=== PATIENT | male | born 1955 | race Caucasian/White ===

== ENCOUNTER 2017-11-15 07:42 | Outpatient (CLI) | payer BC ==
--- NOTE | 2017-11-15 10:15 | CT ---
CT PULMONARY LUNG SCAN WITHOUT CONTRAST: INDICATIONS: Wellness examination. Screening for lung cancer with history of 35-year pack per day smoking history . The patient quit 4 to 5 years ago and is 62 years old. COMPARISON: Prior CT pulmonary lung scan from [facility], dated 10/08/2014. FINDINGS: There is a new focus of tree-in-bud nodularity within the posterior aspect of the left lower lobe on image 37 of series 3. There is a noncalcified pulmonary nodule within the left lower lobe, measuring 4.6 mm, stable to the prior exam. There is a 5 mm pulmonary nodule, left upper lobe, on image 25 of series 3, stable to the prior exam. There is a stellate, scar-like opacity within the right upper lobe, best seen on image 14 of series 3 , measuring approximately 2 cm in greatest axial dimension. This has intervally grown since the prio r exam, when it measured 15 mm. This most likely corresponds to the reported ground glass nodule in the right upper lobe, on the comparison report. The lesion measured 2 cm in its greatest craniocauda d dimension, where it also measured 15 mm on the prior study. There is a new 3.7 mm ground glass nodule within the right middle lobe, adjacent to the right minor f issure, on image 27 of series 3. There is a stable small ground glass subpleural pulmonary nodule, right lower lobe, adjacent to the r ight major fissure, on image 27 of series 3, measuring 3.7 mm. There are stable calcified granuloma in the right lower lobe. No definite mediastinal lymphadenopathy is evident. There are atherosclerotic calcifications involvi ng the coronary arteries. No acute osseous abnormality is evident. The visualized upper abdomen has no definite acute abnormality. IMPRESSION: 1. Lung-RADS category 4A-Partially solid nodule that has been slowly growing over the last year. Re commend three-month low dose CT followup to document stability. There is also a reticulonodular opac ity within the left lower lobe, which is new, which may reflect bronchiolitis. This can also be foll owed up on the three month followup CT exam. 2. Pulmonary nodules within the left upper lobe and both lower lobes have been stable since 2015 and are likely benign. There is a new ground glass subpleural, sub-4 mm pulmonary nodule, right middle lobe, measuring 3.7 mm, that requires additional followup. CODE T POS: [facility]
== END 2017-11-15 07:43 | disposition home or self-care (01) ==
LOC: CT 07:42
PROVIDERS: ATTEND Family Medicine
DX: Z87.891 Personal history of nicotine dependence (principal); R91.8 Other nonspecific abnormal finding of lung field
CPT/HCPCS: G0297

== ENCOUNTER 2018-07-12 09:16 | Outpatient (CLI) | payer OTHER ==
--- NOTE | 2018-07-12 10:20 | CT ---
CT CHEST WITHOUT CONTRAST: Multiple axial tomograms were obtained through the chest without IV enhancement. INDICATION: Followup lung nodule. COMPARISON: 11/15/2017. FINDINGS: The focal density in the peripheral right upper lobe is again seen. This density exhibits mild spicu lation and nodularity. Maximal measurement approximately 2.0 cm craniocaudal in the coronal plane, u nchanged from the prior exam. Overall size and appearance of this density appears stable. There are other tiny nodules which are unchanged. A small 3-4 mm nodule right lower lobe near the fi ssure, image 80, is stable. A calcified granuloma in the posterior right lung base is unchanged. Hazy ground-glass opacities in both posterior lung bases appear stable and chronic. Focal reticular nodule opacities with [id number]-type appearance in the posterior left lung base was described previ ously. This focal area of opacity is stable suggesting chronic parenchymal change. There is a nodule along the fissure in the left mid lung measuring 4-5 mm seen on image 70 of axial, stable. Images through the upper abdomen unremarkable. Thyroid is mildly prominent but unchanged in appearan ce. Nonspecific axillary lymph nodes are unchanged. IMPRESSION: Stable lung findings when compared to the exam of 11/15/2017. POS: [facility]
== END 2018-07-12 09:17 | disposition home or self-care (01) ==
LOC: BICCT 09:16
PROVIDERS: ATTEND Internal Medicine Critical Care Medicine
DX: R91.1 Solitary pulmonary nodule (principal)
CPT/HCPCS: 71250

== ENCOUNTER 2019-04-10 09:48 | Outpatient (CLI) | payer OTHER ==
--- NOTE | 2019-04-10 10:47 | CT ---
EXAM: CT of the chest without contrast HISTORY: Right lung nodule COMPARISON: 07/12/2018, 10/08/2014 TECHNIQUE: Multiple contiguous axial images were obtained in a CT the chest without contrast. Coronal and sagittal reformats were performed. FINDINGS: HEART: Normal in size without focal cardiac abnormality. Calcifications are seen in the coronary [place]. MEDIASTINUM: No hilar or mediastinal lymphadenopathy. Evaluation of the mediastinum is limited withou t IV contrast. LUNGS: A stable area of opacity is seen in the right apex. There is a stable area of nodularity withi n this soft tissue density measuring 6 mm in size. PLEURAL SPACE: No pneumothorax or pleural effusion. CHEST WALL SOFT TISSUES: Unremarkable OSSEOUS STRUCTURES: Degenerative changes in the spine. VISUALIZED SUBDIAPHRAGMATIC STRUCTURES: Unremarkable IMPRESSION: Stable opacity in the right apex. The nodule within the opacity has remained stable since the most re cent CT.
== END 2019-04-10 09:49 | disposition home or self-care (01) ==
LOC: BICCT 09:48
PROVIDERS: ATTEND Internal Medicine Critical Care Medicine
DX: R91.1 Solitary pulmonary nodule (principal)
CPT/HCPCS: 71250

== ENCOUNTER 2020-05-28 08:23 | Outpatient (CLI) | payer MEDICARE | END 2020-05-28 08:24 | disposition home or self-care (01) | LOC: BICCT 08:23 | PROVIDERS: ATTEND Internal Medicine Critical Care Medicine | DX: R91.1 Solitary pulmonary nodule (principal) | CPT/HCPCS: 71250 ==

== ENCOUNTER 2020-12-19 08:29 | Outpatient (CLI) | payer MEDICARE | END 2020-12-19 08:30 | disposition home or self-care (01) | LOC: BICULT 08:29 | PROVIDERS: ATTEND Family Medicine | DX: Z13.6 Encounter for screening for cardiovascular disorders (principal); I70.0 Atherosclerosis of aorta | CPT/HCPCS: 76775 ==

== ENCOUNTER 2021-07-13 10:45 | Outpatient (CLI) | payer MEDICARE | END 2021-07-13 10:46 | disposition home or self-care (01) | LOC: RAD 10:45 | PROVIDERS: ATTEND Internal Medicine Critical Care Medicine | DX: R06.00 Dyspnea, unspecified (principal); J98.4 Other disorders of lung | CPT/HCPCS: 71046 ==

== ENCOUNTER 2022-07-12 09:25 | Outpatient (CLI) | payer BC, MEDICARE | END 2022-07-12 09:26 | disposition home or self-care (01) | LOC: RAD 09:25 | PROVIDERS: ATTEND Internal Medicine Critical Care Medicine | DX: R06.00 Dyspnea, unspecified (principal) | CPT/HCPCS: 71046 ==

== ENCOUNTER 2023-07-11 07:58 | Outpatient (CLI) | payer BC | END 2023-07-11 07:59 | disposition home or self-care (01) | LOC: RAD 07:58 | PROVIDERS: ATTEND Internal Medicine Critical Care Medicine | DX: R06.00 Dyspnea, unspecified (principal); J98.4 Other disorders of lung | CPT/HCPCS: 71046 ==

== ENCOUNTER 2024-04-24 08:26 | Outpatient (CLI) | payer BC ==
[2024-04-24] MEDS ORDERED: Iopamidol 370 76% 100 ML VIAL ONE (11:24)
== END 2024-04-24 08:27 | disposition home or self-care (01) ==
LOC: BICCT 08:26
PROVIDERS: ATTEND Internal Medicine Hematology & Oncology
DX: R31.9 Hematuria, unspecified (principal)
CPT/HCPCS: 36415; 74178; 82565